=== PATIENT | female | born 1955 | race Caucasian/White ===

== ENCOUNTER 2016-09-23 17:45 | Emergency (ER) | payer SELFPAY ==
[~2016-09-23] VITALS: Ht 149.9 cm; Wt 72.6 kg
[2016-09-23 18:20] LABS: BASO % 0 % (0-3); EOS % 0 % (0-3); HEMATOCRIT 39.6 % (36.0-47.0); LYMPH # 1.3 x10^3/uL (1.0-4.8); LYMPH % 11 % (24-48); MEAN CORPUSCULAR HEMOGLOBIN 29 pg (25-35); MEAN CORPUSCULAR HGB CONC 33 g/dL (31-37); MEAN CORPUSCULAR VOLUME 88 fL (79-100); MONO # 0.6 x10^3/uL (0.0-1.1); MONO % 5 % (0-9); NEUT # 10.3 x10^3uL (1.8-7.7); NEUT % 84 % (31-73); PLATELET COUNT 228 x10^3/uL (140-400); RED BLOOD COUNT 4.49 x10^6/uL (3.50-5.40); WHITE BLOOD COUNT 12.2 x10^3/uL (4.0-11.0)
--- NOTE | 2016-09-23 18:34 | EKG ---
[address] [address] Test Date: 2016-09-23 Test Time: 17:58:09 Pat Name: ZAYNAB BANEGAS Department: Room: Gender: F Physical Therapist Clinic Director: SUSIE : 1955 Requested By: VINH ARROYO Order Number: [id number] Reading MD: Pee Go Measurements Intervals [place] Rate: 84 P: 66 IL: 150 QRS: 63 QRSD: 94 T: 67 QT: 388 QTc: 462 Interpretive Statements SINUS RHYTHM ATRIAL PREMATURE COMPLEX(ES) Electronically Signed On 09-25-2016 13:16:51 CDT by Pee Go
[2016-09-23 18:42] LABS: CREATININE 1.3 mg/dL (0.6-1.0); GFR 41.8; MAGNESIUM 2.3 mg/dL (1.8-2.4); POTASSIUM 4.2 mmol/L (3.5-5.1)
[2016-09-23] MEDS ORDERED: IV NORMAL SALINE 1,000ML 1,000 ML IV SCH (18:48)
[2016-09-23 18:54] LABS: DIRECT BILIRUBIN 0.2 mg/dL (0.0-0.2); TOTAL BILIRUBIN 0.9 mg/dL (0.2-1.0); TOTAL PROTEIN 7.7 g/dL (6.4-8.2)
--- NOTE | 2016-09-23 18:57 | PHYS DOC ---
General Chief Complaint: ALTERED MENTAL STATUS Stated Complaint: ALTERED MENTAL STATUS Time Seen by MD: 18:07 Source: patient, EMS Exam Limitations: intoxication Problems: History of Present Illness Initial Comments Pt is 60/F to ED via EMS for AMS and presumed opiate OD. EMS reports that pt left work early today due to illness. She was found in her car at work 5 hours later by a coworker who noticed pt car still at work. Law enforcement reportedly found small bag white powder in pt car they ID as heroin. Pt found to be unresponsive in her car, EMS gave narcan IV pt woke immediately confused and vomitted once. Pt soon lethargic again, sleeping with normal VS on ED arrival 98, 83, 20, 163/89, 96% RA. l Timing/Duration: 4-6 hours Severity: severe Modifying Factors: improves with other Associated Symptoms: other Allergies: Coded Allergies: No Known Drug Allergies (Unverified , 09/23/16) Past Medical History Medical History: other (HLP, chronic low back pain, allergic rhinitis, knee pain, DM, anxiety, obestiy, HTN, vit D defic, pseudophakia, PTSD, ) Surgical History: noncontributory Social History Smoker: cigarettes Alcohol: occasionally Drugs: none Review of Systems Respiratory: denies cough, denies shortness of breath Cardiovascular: denies chest pain, denies palpitations Gastrointestinal: denies abdominal pain, denies constipation, vomiting Genitourinary: denies discharge, denies hematuria Musculoskeletal: see HPI, denies joint swelling, denies neck pain Psychiatric/Neurological: see HPI Physical Exam General Appearance: no apparent distress (sedated) Eyes: bilateral eye PERRL, bilateral eye EOMI Ear, Nose, Throat: hearing grossly normal, normal ENT inspection Neck: non-tender, supple Respiratory: normal breath sounds, no respiratory distress Cardiovascular: normal peripheral pulses, regular rate, rhythm Gastrointestinal: normal bowel sounds, soft Back: no CVA tenderness, no vertebral tenderness Extremities: non-tender, normal inspection Neurologic/Psychiatric: other (sedated but wakes easily to tactile, when awake pt AOx3 no focal neurodefs. No SI/HI.) Skin: normal color, warm/dry Orders, Labs, Meds EKG: NSR 84 bpm, PAC, nonspecific ST-T changes no STEMI PATIENT: ZAYNAB BANEGAS ACCOUNT: [id number] : 1955 LOCATION: ER AGE: 60 SEX: F EXAM STATUS: REG ER ORD. PHYSICIAN: VINH ARROYO MD REASON: AMS PROCEDURE: CT HEAD WO CONTRAST PROCEDURE CT head without contrast. HISTORY Found unconscious, altered mental status TECHNIQUE Noncontrast CT imaging was performed of the head. Exposure: One or more of the following individualized dose reduction techniques were utilized for this exam: 1. Automated exposure control. 2. Adjustment of the mA and/or kV according to patient size. 3. Use of iterative reconstruction technique. COMPARISON None FINDINGS No acute intracranial hemorrhage is identified. Mojica-white differentiation of the major vascular territories is preserved. There is no intra-axial mass effect, midline shift, extra-axial fluid collection. No acute calvarial abnormality is identified. Visualized mastoid air cells are aerated. There is likely mucous retention cyst of posterior right ethmoid air cell. IMPRESSION No acute intracranial abnormality is identified. If there is suspicion for evolving or acute ischemia, followup CT or MRI may be beneficial. Electronically signed by: Edie Latif MD (September 23, 2016 19:04:50) DICTATED AND SIGNED BY: JENNIFER LATIF MD DATE: 09/23/161903 CC: VINH ARROYO MD; PCP,NO; EDIE PHOENIX DO ~ WBC 12.2, BUN 45, Cr 1.3, CKMB 5.3, UA has SE contamination, UDS +amphetamine/ methamphetamine and THC 2017: Pt now awake, AOx3. Pt pauses long when asked if she took anything after she left work today, "I can't remember." I advised pt that it was reported LE had found small bag of what they ID as heroin and that pt reportedly responded immediately and appropriately for opiate OD to narcan. Pt denies pain/sob or other complaints, states she has a safe place to go with other adults and that she can get a ride home. Pt refuses inpt management and at this point I feel pt stable for discharge home. Departure Time of Disposition: 20:14 Disposition: 01 HOME, SELF-CARE Diagnosis: Accidental OD, hypovolemia, substance abuse, renal Condition: IMPROVED Patient Instructions: Acute Kidney Injury, Dehydration, Adult, Hive-sd-Pgmq, Methamphetamine Abuse, Complications, Narcotic Overdose, Substance Abuse-Brief Additional Instructions: Rest, no strenuous activity. No driving or operating machinery today. Discontinue substance abuse, seek medical assistance if necessary. Aggressive hydration with gatorade, water. Follow up with your doctor in 1-2 days for recheck and to check your kidney labs. Return to ED with new or changing symptoms. EDIE PHOENIX DO September 23, 2016 18:57
[2016-09-23] MEDS ORDERED: ONDANSETRON PF 4 MG/2 ML VIAL. IV ONE (19:00)
--- NOTE | 2016-09-23 19:05 | RAD ---
PROCEDURE CT head without contrast. HISTORY Found unconscious, altered mental status TECHNIQUE Noncontrast CT imaging was performed of the head. Exposure: One or more of the following individualized dose reduction techniques were utilized for this exam: 1. Automated exposure control. 2. Adjustment of the mA and/or kV according to patient size. 3. Use of iterative reconstruction technique. COMPARISON None FINDINGS No acute intracranial hemorrhage is identified. Mojica-white differentiation of the major vascular territories is preserved. There is no intra-axial mass effect, midline shift, extra-axial fluid collection. No acute calvarial abnormality is identified. Visualized mastoid air cells are aerated. There is likely mucous retention cyst of posterior right ethmoid air cell. IMPRESSION No acute intracranial abnormality is identified. If there is suspicion for evolving or acute ischemia, followup CT or MRI may be beneficial. Electronically signed by: Marko York MD (September 23, 2016 19:04:50)
[2016-09-23 19:37] LABS: AMPHETAMINE/METHAMPHETAMINE POS (NEG); BARBITURATES NEG (NEG); BENZODIAZEPINES NEG (NEG); CANNABINOIDS POS (NEG); COCAINE NEG (NEG); METHADONE NEG (NEG); OPIATES NEG (NEG); PHENCYCLIDINE NEG (NEG)
[2016-09-23 19:43] LABS: BILIRUBIN,URINE NEG (NEG); CLARITY,URINE CLEAR; COLOR,URINE STRAW; GLUCOSE,URINE NEG (NEG); NITRITE,URINE NEG (NEG); UROBILINOGEN,URINE 0.2 mg/dL (0.2 mg/dL)
[2016-09-23 19:44] LABS: BACTERIA,URINE 0 /HPF (0-FEW); SQUAMOUS EPITHELIAL CELL,UR MOD /LPF
[2016-09-23 19:49] LABS: HYALINE CASTS, URINE MOD /HPF
[2016-09-23 22:00] VITALS: BP 136/77
--- NOTE | 2016-09-24 08:23 | RAD ---
AP chest, 09/23/2016: History: Altered mental status The heart is at the upper limits of normal in size. The pulmonary vascularity is normal. There is mild tortuosity of the thoracic aorta. There is mild pleural thickening inferolaterally on the left with an underlying minimal linear parenchymal opacity. Pleural/parenchymal scarring is likely. The lungs are otherwise clear. No significant volume of pleural fluid is seen. IMPRESSION: 1. Borderline cardiomegaly. 2. Mild left basilar streaky atelectasis and/or scarring.
== END 2016-09-23 22:11 | disposition home or self-care (01) ==
LOC: ER 17:45
DX: T40.1X1A Poisoning by heroin, accidental (unintentional), initial encounter (principal); R41.82 Altered mental status, unspecified; E86.1 Hypovolemia; F11.10 Opioid abuse, uncomplicated; F17.210 Nicotine dependence, cigarettes, uncomplicated; E78.5 Hyperlipidemia, unspecified; G89.29 Other chronic pain; E11.9 Type 2 diabetes mellitus without complications; F41.9 Anxiety disorder, unspecified; E66.9 Obesity, unspecified; I10 Essential (primary) hypertension; F43.10 Post-traumatic stress disorder, unspecified; Z68.32 Body mass index [BMI] 32.0-32.9, adult; Z96.1 Presence of intraocular lens; Y92.89 Other specified places as the place of occurrence of the external cause
CPT/HCPCS: 36415; 70450; 71010; 80048; 80076; 80305; 80320; 81001; 82140; 82553; 83735; 83880; 84484; 85027; 85610; 85730; 87086; 93005; 96361; 96374; 99285; J2405; G0480; G0481; J7030

== ENCOUNTER → 2021-04-08 | Outpatient (CLI) | payer OTHER ==
--- NOTE | 2021-04-11 17:51 | RAD ---
Bilateral digital screening mammogram: Reason for examination: Routine screening. Comparison is made to previous study dated 05/05/2018. Interpretation was made with the benefit of CAD. FINDINGS: Breast density: Category C. The breasts are heterogeneously dense, which may obscure small masses.. There are no dominant masses, suspicious calcifications or architectural distortions. IMPRESSION: No evidence of malignancy. Assessment: BI-RADS Category 1: Negative. Recommendation: Routine screening 3-D mammograms. This patient's information has been entered into a reminder system for the patient to be notified wit h the results of her examination and a target date for the next mammogram. Your patient's mammogram demonstrates that she has dense breast tissue (breast density category C or D), which could hide abnormalities, and if she has other risk factors for breast cancer that have bee n identified, she might benefit from supplemental screening tests that may be suggested by you as her ordering physician. Dense breast tissue, in and of itself, is a relatively common condition. Therefo re, this information is not provided to cause undue concern, but rather to raise your awareness and t o promote discussion with your patient regarding the presence of other risk factors, in addition to d ense breast tissue. Electronically signed by: Gloria Escobar MD (04/11/2021 5:48 PM) [id number]
== END ==
LOC: MAMMO 15:07
PROVIDERS: ATTEND Nurse Practitioner Family
DX: Z12.31 Encounter for screening mammogram for malignant neoplasm of breast (principal)
CPT/HCPCS: 77067